=== PATIENT | female | born 1990 | race Caucasian/White ===

== ENCOUNTER 2019-11-18 18:11 | Emergency (ER) | payer SELFPAY ==
[~2019-11-18] VITALS: Ht 170.2 cm; Wt 128.4 kg
[2019-11-18 18:23] VITALS: BP 153/92; Ht 170.2 cm; Wt 128.4 kg
== END 2019-11-18 19:59 | disposition home or self-care (01) ==
LOC: ED 18:11
DX: H66.91 Otitis media, unspecified, right ear (principal)